=== PATIENT | male | born 1960 | race Caucasian/White ===

== ENCOUNTER 2017-08-19 10:31 | Emergency (ER) | payer MEDICARE, OTHER ==
[2017-08-19] MEDS ORDERED: HYDROcodone/Acetaminophen 10/325 mg Tablet ONE (11:53)
[2017-08-19] MEDS ORDERED: Cyclobenzaprine 10 MG TAB ONE (11:54)
[2017-08-19] MEDS ORDERED: Lidocaine 1% PF 5 ML VIAL ONE (11:54)
== END 2017-08-19 12:12 | disposition home or self-care (01) ==
LOC: ERS 10:31
DX: S16.1XXA Strain of muscle, fascia and tendon at neck level, initial encounter (principal); I10 Essential (primary) hypertension; F41.9 Anxiety disorder, unspecified; F17.210 Nicotine dependence, cigarettes, uncomplicated; X50.0XXA Overexertion from strenuous movement or load, initial encounter
CPT/HCPCS: 20551; J2001

== ENCOUNTER 2017-08-28 13:57 | Outpatient (CLI) | payer MEDICARE ==
--- NOTE | 2017-08-28 16:31 | MRI ---
NONCONTRAST ENHANCED MRI IMAGES CERVICAL SPINE: History Occipital neuralgia, M54.81. TECHNIQUE: Multiplanar, multisequence pre- and postcontrast-enhanced MRI images of the cervical spine. ACDF infusion of the C5, 6, and 7 vertebrae is seen using anterior plates and screws. The spinal cord is unremarkable. C1-2: Unremarkable. C2-3: Unremarkable. C3-4: There is a mild disk bulge minimally but not significantly compressing the thecal sac. Mild bilateral C3-4 neural foraminal narrowing is seen due to uncovertebral osteophyte hypertrophy. C4-5: There is a broad-based disk-osteophyte complex centrally compressing the thecal sac resulting in a moderate degree of central stenosis and moderate bilateral neural foraminal narrowing. C5-6: The central canal and neural foramen are patent. C6-7: Unremarkable. C7-T1: Unremarkable. IMPRESSION: C5, 6, and 7 anterior cervical diskectomy and fusion with central and neural foraminal narrowing jermaine nosis as described above. POS: [facility]
== END 2017-08-28 13:58 | disposition home or self-care (01) ==
LOC: MRI 13:57
PROVIDERS: ATTEND Anesthesiology Pain Medicine
DX: M54.81 Occipital neuralgia (principal); M54.2 Cervicalgia; M48.02 Spinal stenosis, cervical region; Z98.1 Arthrodesis status
CPT/HCPCS: 72156

== ENCOUNTER 2017-11-02 07:41 | Outpatient (CLI) | payer MEDICARE, OTHER ==
--- NOTE | 2017-11-02 12:53 | NM ---
HIDA SCAN: RADIOPHARMACEUTICAL: 5.1 mCi Technetium 99m Mebrofenin IV. INDICATION: Epigastric pain. FINDINGS: There is homogeneous uptake of radiotracer within the liver. The gallbladder is visualized prior to 10 minutes of imaging. Bowel activity is present within 15 minutes. Subsequently, 8 ounces of protein supplementation was ingested orally and subsequently gallbladder ej ection fraction was calculated at 85%. IMPRESSION: 1. Visualization of the gallbladder excludes cystic duct obstruction. 2. Normal gallbladder ejection fraction makes biliary dyskinesia unlikely. POS: [facility]
== END 2017-11-02 07:42 | disposition home or self-care (01) ==
LOC: NM 07:41
PROVIDERS: ATTEND Internal Medicine Gastroenterology
DX: R10.13 Epigastric pain (principal)
CPT/HCPCS: 78227; A9537

== ENCOUNTER 2018-09-03 17:11 | Emergency (ER) | payer MEDICARE, OTHER ==
[2018-09-03 18:06] LABS: #Basophils 0.1 thou/uL (0.0-0.2); #Eosinphils 0.1 thou/uL (0.0-0.7); #Lymphocytes 2.5 thou/uL (1.20-3.40); #Monocytes 0.6 thou/uL (0.11-0.59); #Neutrophils 3.8 thou/uL (1.40-6.50); %Basophils 0.7 % (0.0-1.0); %Eosinophils 2.1 % (0.0-10.0); %Lymphocytes 35.5 % (21.0-51.0); %Neutrophils 53.6 % (42.0-75.0); Hemoglobin 13.6 g/dL (14.0-18.0); Mean Corpuscular HGB CONC 34.3 g/dL (32.0-36.0); Mean Corpuscular Hemoglobin 31.8 pg (27.0-31.0); Mean Corpuscular Volume 92.6 fL (78.0-98.0); Mean Platelet Volume 8.6 fL (7.4-10.4); Platelet Count 206 thou/uL (130-400); RBC Distribution Width 12.7 % (11.5-14.5); Red Blood Cell (RBC) Count 4.29 mill/uL (4.70-6.10); White Blood Cell (WBC) Count 7.1 thou/uL (4.8-10.8)
[2018-09-03 18:31] LABS: ALT (SGPT) 60 U/L (8-55); AST (SGOT) 45 U/L (5-34); Albumin 4.2 g/dL (3.5-5.0); Alkaline Phosphatase 96 U/L (40-150); Anion Gap 15 mmol/L (10-20); BUN (Urea Nitrogen) 10 mg/dL (8.4-25.7); Bilirubin, Total 0.4 mg/dL (0.2-1.2); Calc. Creatinine Clearance 0 mL/min (70-130); Calcium 9.2 mg/dL (7.8-10.44); Carbon Dioxide 24 mmol/L (22-29); Chloride 100 mmol/L (98-107); Estimated GFR-MDRD 85; Globulin 3.6 g/dL (2.4-3.5); Glucose 99 mg/dL (70-105); Lipase 63 U/L (8-78); Potassium 4.1 mmol/L (3.5-5.1); Protein, Total 7.8 g/dL (6.0-8.3); Sodium 135 mmol/L (136-145)
[2018-09-03 18:33] LABS: CKMB 3.2 ng/mL (0-6.6); Troponin I Less than 0.010 ng/mL (< 0.028)
[2018-09-03 19:23] LABS: Bilirubin Negative (Negative); Blood, Urine Negative (Negative); Clarity CLEAR (Clear); Glucose, Urine (Dipstick) Negative (Negative); Leukocyte Negative (Negative); Nitrite Negative (Negative); Protein, Urine (Dipstick) Negative (Neg-Trace); Specific Gravity, Urine 1.012 (1.002-1.036)
--- NOTE | 2018-09-03 19:25 | RAD ---
CHEST ONE VIEW: HISTORY: Dyspnea. COMPARISON: 07/08/2017 FINDINGS: The cardiac silhouette is magnified by projection. The pulmonary vasculature is unremarkable. The m ediastinum is midline. Postoperative changes of the cervical spine are partially visualized. Old ri ght rib fractures. IMPRESSION: No active cardiopulmonary abnormalities are demonstrated. POS: [facility]
[2018-09-03] MEDS ORDERED: Dexamethasone 4 mg/ml Vial ONE (19:52)
== END 2018-09-03 20:00 | disposition home or self-care (01) ==
LOC: ERS 17:11
DX: R06.02 Shortness of breath (principal); I10 Essential (primary) hypertension; F41.9 Anxiety disorder, unspecified; F17.210 Nicotine dependence, cigarettes, uncomplicated; Z79.899 Other long term (current) drug therapy; Z79.891 Long term (current) use of opiate analgesic
CPT/HCPCS: 71045; 80053; 81003; 82553; 83690; 83880; 84443; 84484; 85025; 93005; 94640; J1100; J7620

== ENCOUNTER → 2018-09-25 | Day surgery (SDC) | payer MEDICARE ==
[2018-09-24 09:24] VITALS: BMI 31.9
[~2018-09-25] MED LIST: Bupivacaine/Epinephrine 0.25% 30 ML VIAL ONE; CEFAZOLIN 2 GM/50 ML BAG ONE; Fentanyl 100 MCG/2 ML VIAL ONE; Fentanyl 250 MCG/5 ML VIAL ONE; Ketorolac Tromethamine 30 MG/ML VIAL ONE; Lidocaine 1% PF 5 ML VIAL ONE; Midazolam HCl 2 mg/2 ml Vial ONE; Ondansetron PF 4 MG/2 ML Vial ONE; PROPOFOL 200 MG/20 ML VIAL ONE
--- NOTE | 2018-09-26 13:36 | OP ---
DATE OF PROCEDURE: 09/25/2018 PREOPERATIVE DIAGNOSIS: Ventral hernia. POSTOPERATIVE DIAGNOSIS: Ventral hernia. PROCEDURE: Ventral hernia repair with mesh, Ventralex ST small 4 cm. SURGEON: Dr. Sabino Limon ANESTHESIA: General. ESTIMATED BLOOD LOSS: Minimal. COMPLICATIONS: None. SPECIMEN: None. TECHNIQUE: The patient was taken to the operating room and placed supine on the table. After genera l anesthetic was obtained, the abdomen was shaved, prepped, and draped in a sterile fashion. Vertica l incision was made over the palpable defect in the upper midline of abdomen. Cautery was used to di ssect down to a hernia sac. The hernia sac was inverted back into the abdominal cavity. The preperi toneal space was bluntly dissected through the defect using a wet unraveled Ray-Bill. The 4 cm mesh w as brought in the sterile field. The underlay was placed in the preperitoneal space, its tails laid out lateral, tails were sewn via U stitch of permanent braided suture to the edges of the fascia and superior and inferiorly. The fascia was closed loosely over the mesh after the tails of the mesh wer e cut at the level of the fascia. The wound was irrigated. Local anesthetic was applied. The wound was closed using 3-0 Vicryl, 4-0 Monocryl, and Dermabond. The patient is en route to recovery in st able condition. All instrument counts, needle counts, lap counts were correct.
== END ==
LOC: SDC 08:25
PROVIDERS: ATTEND Surgery
PROC: 0WUF0JZ Supplement Abdominal Wall with Synthetic Substitute, Open Approach (ICD-10-PCS; principal; 2018-09-25)
DX: K43.9 Ventral hernia without obstruction or gangrene (principal); I10 Essential (primary) hypertension; Z87.820 Personal history of traumatic brain injury; Z79.1 Long term (current) use of non-steroidal anti-inflammatories (NSAID); Z79.2 Long term (current) use of antibiotics; Z79.899 Other long term (current) drug therapy; Z88.8 Allergy status to other drugs, medicaments and biological substances; Z98.890 Other specified postprocedural states
CPT/HCPCS: 96374; J2250; J3010